=== PATIENT | male | born 1995 | race Caucasian/White ===

== ENCOUNTER 2018-02-15 20:12 | Emergency (ER) | payer MEDICAID, OTHER ==
[~2018-02-15] VITALS: Ht 193 cm; Wt 108.9 kg
[2018-02-15 20:31] VITALS: BP 124/84
[2018-02-16] MEDS ORDERED: LIDOCAINE 1%HCL (LOCAL ANESTH) 10 ML MDV ONE (00:21)
[2018-02-16] MEDS ORDERED: LIDOCAINE 1% HCL (LOCAL ANESTH.) INJ 20ML MDV ID ONE (01:15)
[2018-02-16] MEDS ORDERED: BACITRACIN TOP OINT 1 UD PKG TOP ONE (01:30)
== END 2018-02-16 01:57 | disposition home or self-care (01) ==
LOC: ER 20:12
DX: S61.210A Laceration without foreign body of right index finger without damage to nail, initial encounter (principal); W25.XXXA Contact with sharp glass, initial encounter; Y93.89 Activity, other specified; Y99.8 Other external cause status; Y92.89 Other specified places as the place of occurrence of the external cause
CPT/HCPCS: 12002; 73130; J2001